=== PATIENT | female | born 1975 | race Caucasian/White ===

== ENCOUNTER 2024-09-08 09:20 | Emergency (ER) | payer BC ==
[2024-09-08 10:44] LABS: INFLUENZA A NAA NEGATIVE (NEGATIVE); INFLUENZA B NAA NEGATIVE (NEGATIVE); RESPIRATORY SYNCYTIAL VIR NAA NEGATIVE (NEGATIVE)
[2024-09-08 10:46] LABS: CORONAVIRUS COVID-19 NAA POSITIVE (NEGATIVE)
== END 2024-09-08 11:18 | disposition home or self-care (01) ==
LOC: LB.ED 09:20
DX: U07.1 COVID-19 (principal)
CPT/HCPCS: 0241U; 71045; 99283